=== PATIENT | male | born 1980 | race Hispanic/Latino ===

== ENCOUNTER 2018-03-01 21:12 | Emergency (ER) | payer SELFPAY ==
[2018-03-01] MEDS ORDERED: NA CHLORIDE 0.9% 1,000 ML ONE ×2 (21:56→21:57)
[2018-03-01 22:01] LABS: Urine Blood NEGATIVE (NEG); Urine Glucose NEGATIVE (NEG); Urine Protein 1+ (NEG); Urine Specific Gravity >1.030 (1.005-1.030); Urine pH 5.5 (5.0-7.0)
--- NOTE | 2018-03-01 23:19 | ER ---
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 Transition of care: patient was not received from another setting of care. Onset of symptoms was March 01, 2018. Risk Assessment: Do you want to hurt yourself or someone else? Patient reports no desire to harm self or others. Initial Sepsis Screen: Does the patient meet any 2 criteria? No. Patient's initial sepsis screen is negative. Does the patient have a suspected source of infection? No. Patient's initial sepsis screen is negative. Care prior to arrival: None. 21:50 Method Of Arrival: Ambulatory ak1 21:50 Acuity: ZEB 3 ak1 Triage Assessment: 21:52 General: Appears in no apparent distress. Behavior is calm, cooperative. Pain: ak1 Complains of pain in abdomen. EENT: No signs and/or symptoms were reported regarding the EENT system. Neuro: Level of Consciousness is awake, alert, obeys commands, Oriented to person, place, time, situation, Fire Behavior Analyst are equal bilaterally Moves all extremities. Gait is steady, Speech is normal, Facial symmetry appears normal. Cardiovascular: No deficits noted. Respiratory: No deficits noted. GI: Abdomen is round Bowel sounds present X 4 quads. Reports lower abdominal pain, upper abdominal pain, cramping, nausea, Patient currently denies diarrhea, vomiting. : No signs and/or symptoms were reported regarding the genitourinary system. Derm: No signs and/or symptoms reported regarding the dermatologic system. Musculoskeletal: No signs and/or symptoms reported regarding the musculoskeletal system. Historical: - Allergies: 21:52 No Known Allergies; ak1 - Home Meds: 21:52 Unable to obtain [Active]; ak1 - PMHx: 21:52 Anxiety; Hyperlipidemia; ak1 - PSHx: 21:52 None; ak1 - Immunization history:: Adult Immunizations unknown. - Social history:: Smoking status: Patient/guardian denies using tobacco. - Ebola Screening: : No symptoms or risks identified at this time. Screenin:55 Abuse screen: Denies threats or abuse. Denies injuries from another. Nutritional ak1 screening: No deficits noted. Tuberculosis screening: No symptoms or risk factors identified. Fall Risk None identified. Assessment: 21:54 Reassessment: Patient appears in no apparent distress at this time. No changes from ak1 previously documented assessment. see triage assessment. 21:54 GI: Abdomen is round Bowel sounds present X 4 quads. Abd is soft and non tender X 4 ak1 quads. Vital Signs: 21:52 BP 130 / 80; Pulse 89; Resp 18; Temp 98.3(O); Pulse Ox 97% on R/A; Weight 99.79 kg (R); ak1 Height 5 ft. 7 in. (170.18 cm) (R); Pain 1/10; 23:03 BP 119 / 71; Pulse 72; Resp 18; Temp 98.2; Pulse Ox 97% on R/A; Pain 1/10; ak1 23:23 BP 122 / 74; Pulse 75; Resp 18; Pulse Ox 97% on R/A; Pain 0/10; ak1 21:52 Body Mass Index 34.46 (99.79 kg, 170.18 cm) ak1 ED Course: 21:16 Patient arrived in ED. es 21:42 Dequan Salazar MD is Attending Physician. ps1 21:50 Ly Pitt, RN is Primary Nurse. ak1 21:51 Triage completed. ak1 21:52 Arm band placed on Patient placed in an exam room, on a stretcher, on pulse oximetry, ak1 Patient notified of wait time. Urine obtained. 21:55 Urine collected: clean catch specimen, tea colored. Inserted saline lock: 18 gauge in ak1 right antecubital area, using aseptic technique. ,using aseptic technique. placed by Kalia Souza. 21:56 Patient has correct armband on for positive identification. Bed in low position. Call ak1 light in reach. Side rails up X 1. Adult w/ patient. Pulse ox on. NIBP on. 23:03 No provider procedures requiring assistance completed. ak1 23:29 IV discontinued, intact, bleeding controlled, No redness/swelling at site. Pressure ak1 dressing applied. Administered Medications: 21:56 Drug: NS 0.9% 1000 ml Route: IV; Rate: 1 bolus; Site: right antecubital; ao 22:43 Follow up: IV Status: Completed infusion ak1 22:43 Drug: NS 0.9% 1000 ml Route: IV; Rate: 1 bolus; Site: right antecubital; ak1 23:24 Follow up: IV Status: Completed infusion; IV Intake: 1000ml ak1 Intake: 23:24 IV: 1000ml; Total: 1000ml. ak1 Outcome: 23:19 Discharge ordered by . ps1 23:25 Discharged to home ambulatory, with family. ak1 23:25 Condition: good 23:25 Discharge instructions given to patient, family, Instructed on discharge instructions, follow up and referral plans. Demonstrated understanding of instructions, follow-up care. 23:29 Patient left the ED. ak1 Signatures: Sheron Rivera Amber, RN RN ak1 Itz Agrawal RN RN ao Singer, Phillip, MD MD ps1
--- NOTE | 2018-03-01 23:19 | EDPHYS ---
Physician Documentation [facility] Name: Heriberto Hernandez Age: 38 yrs Sex: Male : 1980 Arrival Date: 03/01/2018 Time: 21:16 Bed 6 Private MD: ED Physician Dequan Salazar HPI: 03/01 21:45 This 38 yrs old Male presents to ER via Unassigned with complaints of ps1 Abdominal Cramping, Heat Exposure. 21:45 patient was working in an attic all day. Not drinking enough water. Patient has dark ps1 urine and complaining of abdominal cramps. Intermittent. Pain moderate. Tolerating PO. . Historical: - Allergies: 21:52 No Known Allergies; ak1 - Home Meds: 21:52 Unable to obtain [Active]; ak1 - PMHx: 21:52 Anxiety; Hyperlipidemia; ak1 - PSHx: 21:52 None; ak1 - Immunization history:: Adult Immunizations unknown. - Social history:: Smoking status: Patient/guardian denies using tobacco. - Ebola Screening: : No symptoms or risks identified at this time. ROS: 21:45 Constitutional: Negative for fever, chills, and weight loss, Eyes: Negative for injury, ps1 pain, redness, and discharge, Cardiovascular: Negative for chest pain, palpitations, and edema, Respiratory: Negative for shortness of breath, cough, wheezing, and pleuritic chest pain, MS/Extremity: Negative for injury and deformity, Skin: Negative for injury, rash, and discoloration, Neuro: Negative for headache, weakness, numbness, tingling, and seizure. 21:45 Abdomen/GI: Positive for nausea, abdominal cramps. Exam: 21:45 Constitutional: This is a well developed, well nourished patient who is awake, alert, ps1 and in no acute distress. Head/Face: Normocephalic, atraumatic. Eyes: Pupils equal round and reactive to light, extra-ocular motions intact. Lids and lashes normal. Conjunctiva and sclera are non-icteric and not injected. Chest/axilla: Normal chest wall appearance and motion. Nontender with no deformity. No lesions are appreciated. Cardiovascular: Regular rate and rhythm. No gallops, murmurs, or rubs. Normal PMI, no JVD. No pulse deficits. Respiratory: Lungs have equal breath sounds bilaterally, clear to auscultation and percussion. No rales, rhonchi or wheezes noted. No increased work of breathing, no retractions or nasal flaring. Abdomen/GI: Soft, non-tender, with normal bowel sounds. No distension or tympany. No guarding or rebound. No evidence of tenderness throughout. Skin: Warm, dry with normal turgor. Normal color with no rashes, no lesions, and no evidence of cellulitis. Neuro: Awake and alert, GCS 15, oriented to person, place, time, and situation. Cranial nerves II-XII grossly intact. Sensory grossly intact. Psych: Awake, alert, with orientation to person, place and time. Behavior, mood, and affect are within normal limits. Vital Signs: 21:52 BP 130 / 80; Pulse 89; Resp 18; Temp 98.3(O); Pulse Ox 97% on R/A; Weight 99.79 kg (R); ak1 Height 5 ft. 7 in. (170.18 cm) (R); Pain 1/10; 23:03 BP 119 / 71; Pulse 72; Resp 18; Temp 98.2; Pulse Ox 97% on R/A; Pain 1/10; ak1 23:23 BP 122 / 74; Pulse 75; Resp 18; Pulse Ox 97% on R/A; Pain 0/10; ak1 21:52 Body Mass Index 34.46 (99.79 kg, 170.18 cm) ak1 MDM: 22:19 Patient medically screened. ps1 03/01 21:54 Order name: Urine Dipstick--Ancillary (enter results); Complete Time: 23:17 ms 03/01 21:56 Order name: IV Start; Complete Time: 21:56 ak1 Administered Medications: 21:56 Drug: NS 0.9% 1000 ml Route: IV; Rate: 1 bolus; Site: right antecubital; ao 22:43 Follow up: IV Status: Completed infusion ak1 22:43 Drug: NS 0.9% 1000 ml Route: IV; Rate: 1 bolus; Site: right antecubital; ak1 23:24 Follow up: IV Status: Completed infusion; IV Intake: 1000ml ak1 Disposition: 03/01/18 23:19 Discharged to Home. Impression: Dehydration. - Condition is Stable. - Discharge Instructions: Dehydration, Adult. - Work release form, Medication Reconciliation Form, Thank You Letter, Antibiotic Education, Prescription Opioid Use form. - Follow up: Private Physician; When: As needed; Reason: Continuance of care. Follow up: Emergency Department; When: As needed; Reason: Worsening of condition. - Problem is new. - Symptoms have improved. Signatures: Dispatcher [employer] [facility] Ly Pitt RN RN ak1 Itz Agrawal RN RN ao Singer, Phillip, MD MD ps1 Corrections: (The following items were deleted from the chart) 23:29 23:19 03/01/2018 23:19 Discharged to Home. Impression: Dehydration. Condition is ak1 Stable. Forms are Medication Reconciliation Form, Thank You Letter, Antibiotic Education, Prescription Opioid Use. Follow up: Private Physician; When: As needed; Reason: Continuance of care. Follow up: Emergency Department; When: As needed; Reason: Worsening of condition. Problem is new. Symptoms have improved. ps1
== END 2018-03-01 23:29 | disposition home or self-care (01) ==
LOC: ER 21:12
DX: E86.0 Dehydration (principal); E78.5 Hyperlipidemia, unspecified
CPT/HCPCS: 81003; 96360; 99284; J7030

== ENCOUNTER 2023-04-03 13:12 | Emergency (ER) | payer SELFPAY ==
--- NOTE | 2023-04-03 14:07 | EDPHYS ---
Physician Documentation [facility] Name: Heriberto Hernandez Age: 43 yrs Sex: Male : 1980 Arrival Date: 04/03/2023 Time: 13:12 Bed 14 Private MD: ED Physician Stacia Singh HPI: 04/03 17:23 This 43 yrs old Male presents to ER via Ambulatory with complaints of Leg Pain.kb 17:23 Onset: The symptoms/episode began/occurred 1 week(s) ago. Possible cause(s): unknown. kb Severity of symptoms: At their worst the symptoms were mild, in the emergency department the symptoms are unchanged. The patient has not experienced similar symptoms in the past. The patient has not recently seen a physician. Pt reports he had pain to right upper thigh last week, then three days later he developed redness and pustules. States he popped a few of them and it seemed to spread. Historical: - Allergies: 13:41 No Known Allergies; iw - PMHx: 13:41 Anxiety; Hyperlipidemia; iw - Immunization history:: Adult Immunizations up to date. - Social history:: Smoking status: Patient denies any tobacco usage or history of. ROS: 16:57 Constitutional: Negative for fever, chills, and weight loss. kb 16:57 Skin: Positive for erythema, of the right quadriceps. 16:57 All other systems are negative. Exam: 17:22 Constitutional: This is a well developed, well nourished patient who is awake, alert, kb and in no acute distress. Head/Face: Normocephalic, atraumatic. ENT: Moist Mucous membranes Cardiovascular: Regular rate and rhythm with a normal S1 and S2. No gallops, murmurs, or rubs. No pulse deficits. Respiratory: Respirations even and unlabored. No increased work of breathing. Talking in full sentences MS/ Extremity: Pulses equal, no cyanosis. Neurovascular intact. Full, normal range of motion. Neuro: Awake and alert, GCS 15, oriented to person, place, time, and situation. Moves all extremities. Normal gait. 17:22 Skin: pustules to right upper thigh with mild surrounding erythema. Vital Signs: 13:40 BP 139 / 85; Pulse 69; Resp 16; Temp 97.7; Pulse Ox 99% on R/A; Weight 104.33 kg; iw Height 5 ft. 7 in. ; 14:15 BP 149 / 87; Pulse 70; Resp 16; Pulse Ox 99% on R/A; me1 13:40 Body Mass Index 36.02 (104.33 kg, 170.18 cm) iw MDM: 13:53 Patient medically screened. kb 17:23 Differential diagnosis: abscess, allergic reaction, cellulitis, insect bite. Data kb reviewed: vital signs, nurses notes. Counseling: I had a detailed discussion with the patient and/or guardian regarding the historical points, exam findings, and any diagnostic results supporting the discharge/admit diagnosis, the need for outpatient follow up, a family practitioner, to return to the emergency department if symptoms worsen or persist or if there are any questions or concerns that arise at home. Administered Medications: No medications were administered Disposition Summary: 04/03/23 14:06 Discharge Ordered Location: Home kb Condition: Stable kb Diagnosis - Local infection of the skin and subcutaneous tissue, unspecified kb Followup: kb - With: Emergency Department - When: As needed - Reason: Worsening of condition Followup: kb - With: Private Physician - When: 2 - 3 days - Reason: Recheck today's complaints, Continuance of care, Re-evaluation by your physician Discharge Instructions: - Discharge Summary Sheet kb - Insect Bite, Adult, [id number] kb - Skin Abscess, [id number] kb Forms: - Medication Reconciliation Form kb - Thank You Letter kb - Antibiotic Education kb - Prescription Opioid Use kb - Patient Portal Instructions kb - Leadership Thank You Letter kb Prescriptions: - Bactrim DS 800-160 mg Oral Tablet - take 1 tablet by ORAL route every 12 hours for 10 days; 20 tablet; Refills: 0, kb Product Selection Permitted Signatures: Lu Arvizu, MARC MIRZA-Maame Lawson, RN RN iw
--- NOTE | 2023-04-03 14:07 | ER ---
Nurse's Notes [facility] Name: Heriberto Hernandez Age: 43 yrs Sex: Male : 1980 Arrival Date: 04/03/2023 Time: 13:12 Bed 14 Private MD: Diagnosis: Local infection of the skin and subcutaneous tissue, unspecified Presentation: 04/03 13:40 Chief complaint: Patient states: has bumps on right upper thigh and around his knee iw area , X 1 week. Coronavirus screen: At this time, the client does not indicate any symptoms associated with coronavirus-19. Ebola Screen: Patient negative for fever greater than or equal to 101.5 degrees Fahrenheit, and additional compatible Ebola Virus Disease symptoms Patient denies exposure to infectious person. Patient denies travel to an Ebola-affected area in the 21 days before illness onset. No symptoms or risks identified at this time. Initial Sepsis Screen: Does the patient meet any 2 criteria? No. Patient's initial sepsis screen is negative. Does the patient have a suspected source of infection? No. Patient's initial sepsis screen is negative. Risk Assessment: Do you want to hurt yourself or someone else?. Onset of symptoms was March 25, 2023. 13:40 Method Of Arrival: Ambulatory iw 13:40 Acuity: ZEB 4 iw Historical: - Allergies: 13:41 No Known Allergies; iw - PMHx: 13:41 Anxiety; Hyperlipidemia; iw - Immunization history:: Adult Immunizations up to date. - Social history:: Smoking status: Patient denies any tobacco usage or history of. Screenin:15 [facility] ED Fall Risk Assessment (Adult) History of falling in the last 3 months, me1 including since admission No falls in past 3 months (0 pts) Confusion or Disorientation No (0 pts) Intoxicated or Sedated No (0 pts) Impaired Gait No (0 pts) Mobility Assist Device Used No (0 pt) Altered Elimination No (0 pt) Score/Fall Risk Level 0 - 2 = Low Risk. Abuse screen: Denies threats or abuse. Nutritional screening: No deficits noted. Tuberculosis screening: No symptoms or risk factors identified. Assessment: 14:15 General: Appears comfortable, well groomed, well developed, well nourished, Behavior is me1 calm, cooperative, appropriate for age, Reports "bumps to right thigh and groin that started popping up about a week ago and have continued to spread and get worse." Denies fever, feeling ill, fatigue, chills. Pain: Denies pain. Neuro: Level of Consciousness is awake, alert, obeys commands, Oriented to person, place, time, situation, Appropriate for age. Cardiovascular: Capillary refill < 3 seconds Patient's skin is warm and dry. Respiratory: Airway is patent Respiratory effort is even, unlabored, Respiratory pattern is regular, symmetrical. Derm: Rash noted that is papular, on right thigh/groin. Vital Signs: 13:40 BP 139 / 85; Pulse 69; Resp 16; Temp 97.7; Pulse Ox 99% on R/A; Weight 104.33 kg; iw Height 5 ft. 7 in. ; 14:15 BP 149 / 87; Pulse 70; Resp 16; Pulse Ox 99% on R/A; me1 13:40 Body Mass Index 36.02 (104.33 kg, 170.18 cm) ED Course: 13:15 Patient arrived in ED. ts1 13:16 Stacia Singh MD is Attending Physician. sp3 13:41 Triage completed. iw 13:42 Arm band placed on. iw 13:53 [facility]C [facility] kb 14:07 Nicolasa Castañeda, FADI is Primary Nurse. me1 14:15 Patient has correct armband on for positive identification. Bed in low position. Call me1 light in reach. Side rails up X 1. Provided Education on: POC. Verbalized understanding.. 14:15 No provider procedures requiring assistance completed. Patient did not have IV access me1 during this emergency room visit. Administered Medications: No medications were administered Medication: 14:15 VIS not applicable for this client. me1 Outcome: 14:06 Discharge ordered by . kb 14:20 Discharged to home ambulatory. me1 14:20 Condition: stable 14:20 Discharge instructions given to patient, Instructed on discharge instructions, follow up and referral plans. medication usage, Demonstrated understanding of instructions, follow-up care, medications, Prescriptions given X 1. 14:20 Patient left the ED. me1 Signatures: Lu Arvizu FNP-C FNP-Maame Lawson, RN RN Stacia Singh MD MD sp3 Esme Linares PAS PAS ts1 Nicolasa Castañeda, RN RN me1 Corrections: (The following items were deleted from the chart) 13:42 13:40 Pulse 69bpm; Resp 16bpm; Pulse Ox 99% RA; Temp 97.7F; 104.33 kg; Height 5 ft. 7 iw in.; BMI: 36.0; iw
[2023-04-03 14:32] VITALS: TEMP 97.7; O2SAT 99
[2023-04-03 14:33] VITALS: BP 149/87
== END 2023-04-03 14:20 | disposition home or self-care (01) ==
LOC: ER 13:12
DX: L08.9 Local infection of the skin and subcutaneous tissue, unspecified (principal)
CPT/HCPCS: 99283

== ENCOUNTER 2024-04-06 08:18 | Day surgery (SDC) | payer BC ==
[2024-04-04 11:51] LABS: Anion Gap 8.8 mEq/L (5.0-15.0); Potassium 3.8 mEq/L (3.5-5.1)
[2024-04-06] MEDS: Ringers Lactate 1,000 ML IV ONE ×2 (08:30→13:00)
[2024-04-06] MEDS ORDERED: propofoL 200 MG/20 ML VIAL IV ONE (11:52)
[2024-04-06] MEDS ORDERED: MIDAZOLAM HCL 2 MG/2 ML INJ ONE (11:52)
[2024-04-06] MEDS ORDERED: ONDANSETRON 4 MG/2 ML VIAL ONE (11:52)
[2024-04-06] MEDS ORDERED: ROCURONIUM 50 MG/5 ML VIAL IV ONE (11:52)
[2024-04-06] MEDS ORDERED: LIDOCAINE 2% MPF 5 ML VIAL ONE (11:52)
[2024-04-06] MEDS ORDERED: FENTANYL CITR 100 MCG/2 ML ONE (11:52)
[2024-04-06] MEDS ORDERED: SUGAMMADEX SODIUM 200 MG/2 ML VIAL IV ONE (12:00)
[2024-04-06] MEDS ORDERED: HYDROMORPHONE HCL 2 MG/ML inj ONE (12:01)
[2024-04-06] MEDS ORDERED: dexAMETHasone 10 MG/ML VIAL ONE (12:17)
[2024-04-06] MEDS: CEFAZOLIN SODIUM 2 GM/VIAL ONE (12:22)
[2024-04-06] MEDS ORDERED: GLYCOPYRROLATE 0.2 MG/ML SYR ONE (12:24)
[2024-04-06] MEDS: LIDOCAINE HCL/EPINEPHRINE 20 ML MDV ONE (12:45)
[2024-04-06] MEDS ORDERED: KETOROLAC 30 MG/ML INJ ONE (12:54)
--- NOTE | 2024-04-06 13:10 | P.OP ---
Preoperative diagnosis: Incarcerated Umbilical Hernia Postoperative diagnosis: Incarcerated Umbilical Hernia Primary procedure: Laparoscopic Umbilical Hernia Repair with mesh Anesthesia: GETA + Local Estimated blood loss: <5cc Specimen: None Findings: Incarcerated Umbilical Hernia ~ 2cm Complications: None Implants: Bard Ventralite ST 11.4 cm Round, Sorbafix x 45 tacks Transferred to: Recovery Room Condition: Good
[2024-04-06] MEDS: FENTANYL CITR 100 MCG/2 ML ONE (13:51)
[2024-04-06] MEDS: HYDROCODONE/APAP 7.5/325 MG TAB ONE (14:51)
[2024-04-06 15:57] VITALS: BP 126/51; TEMP 97.9; O2SAT 99
[2024-04-06] MEDS ORDERED: HYDROCODONE/APAP 7.5/325 MG TAB PO ONE (16:05)
--- NOTE | 2024-04-07 00:03 | OP ---
Date of Procedure: 04/06/2024 Surgeon: Toy James MD, Preoperative Diagnosis: Incarcerated umbilical hernia. Postoperative Diagnosis: Incarcerated umbilical hernia. Procedure Performed: Laparoscopic umbilical hernia repair with mesh. Anesthesia: General endotracheal plus local with 1% lidocaine with epinephrine. Estimated Blood Loss: 5 mL. Specimen: None. Findings: Incarcerated umbilical hernia approximately 2 cm in size. Complications: None. Implants: Bard Ventralight ST mesh with Echo positioning System, 11.4 cm round mesh utilized, SorbaF ix absorbable fixation tacks x45 tacks. Disposition: The patient was transferred to the recovery room in good condition. Procedure In Detail: After informed consent was obtained, the patient was brought to the operating r oom, prepped and draped in the usual sterile fashion after adequate anesthesia was achieved. I anest hetized an area in the left upper quadrant down to subcutaneous tissue. A 5 mm surgical optical troc ar was introduced in the abdomen without incident or complication. Insufflation was obtained to 15 m mHg at this time. There was no injury to vital structures upon entry into the abdomen. Additional t rocars were placed in left lower quadrant. This was similarly anesthetized and sharply incised and a 12 mm trocar was placed under direct visualization without incident or complication. Insufflation w as maintained to 15 mmHg at this time. I then proceeded to use the LigaSure device to take down inca rcerated umbilical hernia with incarcerated adipose tissue from the omentum at this point, taking iván n the alveolar tissue circumferentially around this area. I then swept back all preperitoneal fat of f the preperitoneal space ultimately allowing for appropriate landing zone of the mesh. After the he rnia was visualized, it was skeletonized at this point and closed using an Endo Stitch with an 0 V-Lo c suture in a running fashion with good approximation of tissue imbricating the hernia sac. At this point, I then deployed 11.[address] mesh with Echo positioning System at the supraumbi lical position. Ultimately, after the mesh was deployed, I secured to the anterior bowel wall using a single crown of SorbaFix absorbable fixation tacks, removed the balloon deployment system, found to be intact on the back table then secured it with a double crown type orientation. A total of 45 tac ks were used to secure the mesh to the intraabdominal wall with good approximation and apposition of mesh to the abdominal wall. At this point, the abdomen was partially desufflated. The patient was s lightly rolled away and I closed the 12 mm trocar site using a Nidia suture passer with 0 V icryl in an interrupted fashion with good approximation of tissues. The abdomen was desufflated unde r direct vision without incident or complication. Remainder of the trocars were removed. All skin e dges were then copiously irrigated and closed with a 4-0 Monocryl in a running fashion. Dermabond pl aced over top. The patient tolerated the procedure without incident or complication and transferred to the PACU in good condition. All counts were correct at the end of the case. EDELMIRA/QUINN Voice ID: [id number] Report ID: [id number]
== END 2024-04-06 15:15 | disposition home or self-care (01) ==
LOC: OR 08:18
PROVIDERS: ATTEND Surgery
PROC: 0WUF4JZ Supplement Abdominal Wall with Synthetic Substitute, Percutaneous Endoscopic Approach (ICD-10-PCS; principal; 2024-04-06 10:00)
DX: K42.0 Umbilical hernia with obstruction, without gangrene (principal)
CPT/HCPCS: 80048; 36415; 49592; J2704; J2001; J2250; J1170; J3010 ×2; J1100; J2405; J7120 ×2; C1781

== ENCOUNTER 2024-10-22 13:16 | Emergency (ER) | payer BC ==
--- OUTSIDE RECORDS SUMMARY | 2024-10-22 13:18 | XMS REPORT | Continuity of Care Document ---
Author Name Unknown Address [address] [place] [address] [facility] [address] [place] [address] Care Team Providers Care Apparel Manager Name Role Phone Unavailable Unavailable Unavailable Encounters Start Date/Time End Date/Time Encounter Type Admission Type Attending Clinicians Care Facility Care Department Encounter ID Source 2024-10-12 13:55:39 2024-10-12 13:55:39 Outpatient [facility] [id number] [address] [place] 2023-09-21 10:24:44 2023-09-21 10:24:44 Outpatient [facility] [id number] [address] [place]
[2024-10-22] MEDS ORDERED: ACETAMINOPHEN 500 MG TAB ONE (13:44)
[2024-10-22] MEDS ORDERED: methocarbamoL 750 MG TAB ONE (13:45)
[2024-10-22] MEDS ORDERED: KETOROLAC 30 MG/ML INJ ONE (13:45)
--- NOTE | 2024-10-22 14:28 | RAD REPORT ---
EXAMINATION: XR RIGHT KNEE CLINICAL INDICATION: Male, 44 years old. R knee effusion TECHNIQUE: Multiple views of the right knee were obtained. COMPARISON: No prior exam. FINDINGS: Moderate suprapatellar joint effusion. No acute fracture or dislocation seen. No aggressive bone lesion.
--- NOTE | 2024-10-22 14:36 | ER ---
Nurse's Notes [facility] Name: Heriberto Hernandez Age: 44 yrs Sex: Male : 1980 Arrival Date: 10/22/2024 Time: 13:16 Bed 9 Private MD: Diagnosis: Effusion, right knee Presentation: 10/22 13:26 Chief complaint: Patient states: right knee pain and swelling began yesterday. aa5 13:26 Coronavirus screen: At this time, the client does not indicate any symptoms associated aa5 with coronavirus-19. Ebola Screen: Patient denies travel to an Ebola-affected area in the 21 days before illness onset. Initial Sepsis Screen: Does the patient meet any 2 criteria? No. Patient's initial sepsis screen is negative. Does the patient have a suspected source of infection? No. Patient's initial sepsis screen is negative. Risk Assessment: Do you want to hurt yourself or someone else? Patient reports no desire to harm self or others. Onset of symptoms was September 2024. 13:26 Method Of Arrival: Ambulatory aa5 13:26 Acuity: ZEB 4 aa5 Historical: - Allergies: 13:27 No Known Allergies; aa5 - PMHx: 13:27 Anxiety; Hyperlipidemia; aa5 - PSHx: 13:27 hernia; aa5 - Immunization history:: Adult Immunizations unknown. - Infectious Disease History:: Denies. - Social history:: Smoking status: Patient denies any tobacco usage or history of. Screenin:50 [facility] ED Fall Risk Assessment (Adult) History of falling in the last 3 months, kc6 including since admission No falls in past 3 months (0 pts) Confusion or Disorientation No (0 pts) Intoxicated or Sedated No (0 pts) Impaired Gait No (0 pts) Mobility Assist Device Used No (0 pt) Altered Elimination No (0 pt) Score/Fall Risk Level 0 - 2 = Low Risk Oriented to surroundings, Maintained a safe environment, Educated pt \T\ family on fall prevention, incl call for assistance when getting out of bed. Abuse screen: Denies threats or abuse. Denies injuries from another. Nutritional screening: No deficits noted. Tuberculosis screening: No symptoms or risk factors identified. Assessment: 13:50 General: Appears in no apparent distress. comfortable, well groomed, well developed, kc6 Behavior is calm, cooperative, appropriate for age. Pain: Complains of pain in right knee. Neuro: Level of Consciousness is awake, alert, obeys commands, Oriented to person, place, time, situation, Appropriate for age. Derm: No signs and/or symptoms reported regarding the dermatologic system. Skin is intact, is healthy with good turgor, Skin is pink, warm \T\ dry. Musculoskeletal: Circulation, motion, and sensation intact. Capillary refill < 3 seconds, Range of motion: intact in all extremities. 14:57 Reassessment: Patient appears in no apparent distress at this time. No changes from kc6 previously documented assessment. Patient and/or family updated on plan of care and expected duration. Pain level reassessed. Patient is alert, oriented x 3, equal unlabored respirations, skin warm/dry/pink. Patient states feeling better. Patient states symptoms have improved. Vital Signs: 13:26 BP 152 / 99; Pulse 69; Resp 16 S; Temp 97.6(O); Pulse Ox 98% on R/A; Weight 108.86 kg aa5 (R); Height 5 ft. 7 in. (R); 14:58 BP 129 / 92; Pulse 68; Resp 18 S; Pulse Ox 99% on R/A; kc6 13:26 Body Mass Index 37.59 (108.86 kg, 170.18 cm) aa5 ED Course: 13:20 Patient arrived in ED. al6 13:25 Ganesh Vasquez MD is Attending Physician. ec2 13:25 Arm band placed on. aa5 13:28 Triage completed. aa5 13:40 Jammie Kyle RN is Primary Nurse. kc6 13:50 Patient has correct armband on for positive identification. Bed in low position. Call kc6 light in reach. Side rails up X 1. Pulse ox on. NIBP on. Door closed. Noise minimized. Lights dimmed. Pillow given. Verbal reassurance given. 13:50 Patient maintains SpO2 saturation greater than 95% on room air. kc6 14:24 Knee Right 3 View XRAY In Process Unspecified. EDMS 14:57 No provider procedures requiring assistance completed. Patient did not have IV access kc6 during this emergency room visit. Ari wrap to right knee. Administered Medications: 13:50 Drug: Ketorolac IM 30 mg IM once Route: IM; Site: left deltoid; kc6 14:57 Follow up: Response: No adverse reaction; Pain is decreased kc6 13:50 Drug: Acetaminophen PO 1000 mg PO once Route: PO; kc6 14:57 Follow up: Response: No adverse reaction; Pain is decreased kc6 13:50 Drug: Methocarbamol PO 750 mg PO once Route: PO; kc6 14:57 Follow up: Response: No adverse reaction kc6 Medication: 14:58 VIS not applicable for this client. kc6 Outcome: 14:35 Discharge ordered by . ec2 14:58 Discharged to home ambulatory, kc6 14:58 Condition: good 14:58 Discharge instructions given to patient, Instructed on discharge instructions, follow up and referral plans. medication usage, Demonstrated understanding of instructions, follow-up care, medications, Prescriptions given X 1, 14:58 Patient left the ED. kc6 Signatures: Dispatcher [employer] Leonarda Dover RN RN aa5 Jammie Kyle RN RN kc6 Ganesh Vasquez MD MD ec2 Sharon Beltran Corrections: (The following items were deleted from the chart) 13:28 13:26 Temp 97.6F Oral; aa5 aa5
--- NOTE | 2024-10-22 14:36 | EDPHYS ---
Physician Documentation [facility] Name: Heriberto Hernandez Age: 44 yrs Sex: Male : 1980 Arrival Date: 10/22/2024 Time: 13:16 Bed 9 Private MD: ED Physician Ganesh Vasquez HPI: 10/22 13:35 This 44 yrs old Male presents to ER via Ambulatory with complaints of Knee ec2 Pain. 13:35 Patient arrives today for evaluation of right knee pain and swelling. Reports onset of ec2 2 days. Patient reports no falls injuries or trauma. Reports he has not taken any medication for symptoms. Patient reports no fevers or chills, denies any previous knee issues before.. Historical: - Allergies: 13:27 No Known Allergies; aa5 - PMHx: 13:27 Anxiety; Hyperlipidemia; aa5 - PSHx: 13:27 hernia; aa5 - Immunization history:: Adult Immunizations unknown. - Infectious Disease History:: Denies. - Social history:: Smoking status: Patient denies any tobacco usage or history of. ROS: 13:36 Constitutional: as per hpi ec2 Exam: 13:36 Constitutional: GEN: NAD Head: atraumatic Eyes: EOMI Ears: External ears are ec2 normal. CV: regular rate LUNGS: no respiratory distress ABD: non-distended SKIN: no evidence of rashes MSK: no evidence of trauma, right knee with good range of motion, ballotable effusion appreciated, no erythema, no warmth noted. Vital Signs: 13:26 BP 152 / 99; Pulse 69; Resp 16 S; Temp 97.6(O); Pulse Ox 98% on R/A; Weight 108.86 kg aa5 (R); Height 5 ft. 7 in. (R); 14:58 BP 129 / 92; Pulse 68; Resp 18 S; Pulse Ox 99% on R/A; kc6 13:26 Body Mass Index 37.59 (108.86 kg, 170.18 cm) aa5 MDM: 13:27 Medical Screening Exam initiated ec2 13:36 Data reviewed: vital signs, nurses notes. ED course: Patient arrives today for ec2 evaluation of right knee pain and swelling. Examination yields knee findings as above. Will obtain radiograph. Doubt gout, doubt septic joint, possible inflammatory arthritis given work and excessive walking and movement.. 14:35 ED course: X-rays show no bony fracture. Will discharge home, placed in Ari wrap and ec2 instructed [id number] medications. Return precautions given.. 10/22 13:32 Order name: Knee Right 3 View XRAY; Complete Time: 14:34 ec2 10/22 14:35 Order name: Ari Wrap; Complete Time: 14:57 ec2 Administered Medications: 13:50 Drug: Ketorolac IM 30 mg IM once Route: IM; Site: left deltoid; kc6 14:57 Follow up: Response: No adverse reaction; Pain is decreased kc6 13:50 Drug: Acetaminophen PO 1000 mg PO once Route: PO; kc6 14:57 Follow up: Response: No adverse reaction; Pain is decreased kc6 13:50 Drug: Methocarbamol PO 750 mg PO once Route: PO; kc6 14:57 Follow up: Response: No adverse reaction kc6 Disposition Summary: 10/22/24 14:35 Discharge Ordered Notes: Location: Home ec2 Condition: Stable ec2 Diagnosis - Effusion, right knee ec2 Followup: ec2 - With: Private Physician - When: - Reason: Re-evaluation by your physician Discharge Instructions: - Discharge Summary Sheet ec2 - Knee Effusion ec2 Forms: - Work release form ec2 - Medication Reconciliation Form ec2 - Antibiotic Education ec2 - Prescription Opioid Use ec2 - Patient Portal Instructions ec2 - Leadership Thank You Letter ec2 Prescriptions: - methocarbamol 500 mg Oral tablet - take 2 tablets ORAL route 4 times per day; 30 tablet; Refills: 0, Product ec2 Selection Permitted Signatures: Dispatcher [employer] Leonarda Dover RN RN aa5 Jammie Kyle RN RN kc6 Ganesh Vasquez MD MD ec2 Corrections: (The following items were deleted from the chart) 13:33 13:33 Knee Right 3 View+[email or web address] ordered. ROSAS PILLAI
[2024-10-22 15:09] VITALS: TEMP 97.6
[2024-10-22 15:10] VITALS: BP 129/92; O2SAT 99
== END 2024-10-22 14:58 | disposition home or self-care (01) ==
LOC: ER 13:16
DX: M25.461 Effusion, right knee (principal)
CPT/HCPCS: 96372; 99284